=== PATIENT | female | born 1990 | race Caucasian/White ===

== ENCOUNTER 2016-10-04 05:09 | Inpatient (IN) | payer MEDICAID ==
[2016-10-03 10:29] LABS: ABSOLUTE EOSINOPHILS # (AUTO) 0.2 10^3/uL (0.0-0.6); ABSOLUTE LYMPHOCYTES (AUTO) 2.3 10^3/uL (0.5-4.7); ABSOLUTE MONOCYTES (AUTO) 0.8 10^3/uL (0.1-1.4); ABSOLUTE NEUT (AUTO) 6.9 10^3/uL (1.7-8.2); BASOPHILS % (AUTO) 0.3 % (0-2); EOSINOPHILS % (AUTO) 2.3 % (0-6); HEMOGLOBIN 12.4 g/dL (12.0-15.5); HGB HCT DIFFERENCE 0.2; LYMPHOCYTES % (AUTO) 22.5 % (13-45); MEAN CORPUSCULAR HEMOGLOBIN 26.4 pg (27.0-33.4); MEAN CORPUSCULAR HGB CONC 33.5 g/dL (32.0-36.0); MEAN CORPUSCULAR VOLUME 79 fl (80-97); MONOCYTES % (AUTO) 7.5 % (3-13); RED BLOOD COUNT 4.71 10^6/uL (3.72-5.28); RED CELL DISTRIBUTION WIDTH 16.1 % (11.5-14.0); SEGMENTED NEUTROPHILS % (AUTO) 67.4 % (42-78); WHITE BLOOD COUNT 10.3 10^3/uL (4.0-10.5)
[2016-10-03 10:34] LABS: AMORPHOUS SEDIMENT,URINE TRACE /HPF; APPEARANCE,URINE CLOUDY; BILIRUBIN,URINE NEGATIVE (NEGATIVE); GLUCOSE, URINE 50 mg/dL (NEGATIVE); KETONES,URINE NEGATIVE (NEGATIVE); LEUKOCYTE ESTERASE,URINE TRACE (NEGATIVE); NITRITE,URINE NEGATIVE (NEGATIVE); PROTEIN,URINE NEGATIVE (NEGATIVE); URINE SPECIFIC GRAVITY 1.015; UROBILINOGEN,URINE NEGATIVE mg/dL (<2.0)
[2016-10-03 10:47] LABS: URINE BARBITURATES SCREEN NEGATIVE; URINE METHADONE SCREEN NEGATIVE; URINE OPIATES LOW NEGATIVE; URINE PHENCYCLIDINE SCREEN NEGATIVE
[~2016-10-04 05:09] MED LIST: CEFAZOLIN 1 GM/D5W RTU 1 GM/50 ML RTUPB IV PRN; LIDOCAINE 0.5% INJ-PF (5 MG/ML) 50 ML SDV SUBCUT PRN
[2016-10-04] MEDS: LACTATED RINGERS 1000 ML IV PRN ×2 (05:45→06:19)
[2016-10-04] MEDS ORDERED: OXYTOCIN 10 UNIT/ML VIAL ONE (07:20)
[2016-10-04] MEDS ORDERED: METHYLERGONOVINE MALEATE INJ/PF 0.2 MG/1 ML AMPULE ONE (07:21)
[2016-10-04] MEDS ORDERED: OXYTOCIN/NORMAL SALINE 20 UNIT/1,000 ML RTUINJ ONE (07:21)
[2016-10-04] MEDS ORDERED: EPHEDRINE SULFATE INJ 50 MG/1 ML AMPULE ONE (07:21)
[2016-10-04] MEDS ORDERED: MIDAZOLAM 2 MG/2 ML INJ ONE (07:21)
[2016-10-04] MEDS ORDERED: ACETAMINOPHEN 100 ML IV ONE (07:21)
[2016-10-04] MEDS ORDERED: DIPHENHYDRAMINE HCL 50 MG/ML VIAL IV PRN (07:36)
[2016-10-04] MEDS ORDERED: OXYCODONE-ACETAMINOPHEN 5-325 MG TABLET PO PRN ×3 (07:36→09:02)
[2016-10-04] MEDS ORDERED: PROMETHAZINE HCL INJ 25 MG/1 ML VIAL IV PRN ×3 (07:36→09:02)
[2016-10-04] MEDS ORDERED: MEPERIDINE HCL/PF INJ 25 MG/1 ML DISP.SYRIN IV PRN (07:36)
[2016-10-04] MEDS ORDERED: MORPHINE SULFATE 10 MG/ML INJ IV PRN (07:36)
[2016-10-04] MEDS ORDERED: FENTANYL CITRATE INJ/PF 100 MCG/2 ML AMPUL IV PRN ×2 (07:36)
[2016-10-04] MEDS ORDERED: CEFAZOLIN INJ 1 GM VIAL ONE (08:14)
[2016-10-04] MEDS ORDERED: MEASLES,MUMPS&RUBELLA VACC/PF 0.5 ML VIAL SUBCUT PRN (09:02)
[2016-10-04] MEDS ORDERED: OXYTOCIN/NORMAL SALINE 1,000 ML IV PRN (09:02)
[2016-10-04] MEDS ORDERED: DIPH/PERTUSS(ACELL)/TETANUS VAC/PF 0.5 ML SYR (>=10YO) IM PRN (09:02)
[2016-10-04] MEDS ORDERED: ACETAMINOPHEN 325 MG TABLET PO PRN (09:02)
[2016-10-04] MEDS ORDERED: ACETAMINOPHEN 100 ML IV PRN (09:02)
[2016-10-04] MEDS ORDERED: SIMETHICONE 80 MG TAB.CHEW PO PRN (09:02)
[2016-10-04] MEDS ORDERED: RINGERS SOLUTION,LACTATED 1,000 ML IV PRN (09:02)
--- NOTE | 2016-10-04 09:07 | PDOC DELIVERY SUMMARY ---
Delivery Summary - Maternal Hx : III Hx # Term Pregnancies: 2 [place]ON: 10/11/16 Ruptured Membranes: AROM Time of Rupture: 08:21 Fluids: Clear - Delivery Presentation: Face/Brow Support Person Present: Yes Location: OR : Scheduled Delivery of Placenta Date: 10/04/16 Delivery of Placenta Time: 08:24 - Medications Type of Anesthesia:: Spinal - Infant Assess and Care Baby 1 Male Delivery of Date: 10/04/16 Delivery of Time: 08:22 at 1 minute: 8 at 5 minutes: 9 Preprinted Number On Band: [id number] Skin to Skin: Yes Skin to Skin (Mins): 4 To Nursery At: 08:30 Mode of Transport: Bassinet Infant Weight: 4473 kg Length: 20.5 in - Delivery Personnel Nursery RN: Rebecca DIGGS RN: SIMONE PETERSON RN: LUKE PADGETT MD: ROBERT VELEZ Apartment Maintenance: DR. DICKINSON
--- NOTE | 2016-10-04 09:10 | Operative Report ---
Operative Report DATE OF SURGERY: 10/04/16 PREOPERATIVE DIAGNOSIS: Repeat to prevent uterine rupture and desires tubal ligation POSTOPERATIVE DIAGNOSIS: Same OPERATION: Repeat via low transverse uterine incision and bilateral tubal ligation with Filshie clips SURGEON: ROBERT VELEZ ANESTHESIA: Spinal TISSUE REMOVED OR ALTERED: Placenta COMPLICATIONS: None ESTIMATED BLOOD LOSS: 250 cc INTRAOPERATIVE FINDINGS: Viable male. Normal uterus tubes and ovaries PROCEDURE: Patient was taken to the OR and placed in supine position after her spinal anesthesia. She is prepared and draped in sterile fashion. Guevara was placed for drainage of the bladder. Low transverse incision was made and carried down the level of the fascia. The fascial incision was made with knife and extended bilaterally with curved Patel scissors. The fascia was off the rectus muscles using sharp and blunt dissection. The rectus muscles are in the midline. The peritoneum was entered without incident. Bladder blade was placed in uterine segment was identified. A low transverse incision was made creating a bladder flap. Bladder blade was placed low transverse uterine incision was made with the c safe knife and extended with fingertips. The baby was delivered with some fundal pressure. Mouth and nose were suctioned free. The cord was doubly clamped and cut. Baby was passed off to the ceramics engineer in attendance. The placenta was manually extracted with trailing membranes. The uterus was externalized wrapped in a moist lap sponge. Uterine contents wiped free. Uterus was closed with a running locking layer of 0 chromic suture using the second layer to imbricate the first completing a double layer closure of the uterus. The serosa was closed with a running 2-0 chromic stitch. The pelvis was irrigated and suctioned free of fluid the uterus was replaced in the abdomen. The abdominal wall peritoneum was closed with running 2-0 chromic stitch. Fascia was closed with a running 0 Vicryl in 2 segments. Ciro's layer was brought together with 0 plain gut stitch and the skin was closed with running subcuticular 4-0 undyed Vicryl stitch. The wound was dressed mother and baby did well.
[2016-10-04] MEDS ORDERED: FENTANYL CITRATE INJ/PF 100 MCG/2 ML AMPUL ONE (09:29)
[2016-10-04] MEDS: FENTANYL CITRATE INJ/PF 100 MCG/2 ML AMPUL IV PRN ×2 (09:33→10:00)
[2016-10-04] MEDS ORDERED: HYDROMORPHONE HCL INJ/PF 2 MG/ML AMPULE ONE (10:20)
[2016-10-04] MEDS: HYDROMORPHONE HCL INJ/PF 2 MG/ML AMPULE IV PRN ×2 (10:27→13:29)
[2016-10-04] MEDS ORDERED: ONDANSETRON 4 MG TAB.RAPDIS ONE (11:19)
[2016-10-04] MEDS ORDERED: ONDANSETRON 4 MG TAB.RAPDIS PO PRN (11:22)
[2016-10-04] MEDS ORDERED: IBUPROFEN 800 MG TABLET PO SCH (12:00)
[2016-10-04] MEDS ORDERED: OXYCODONE HCL IR 5 MG TABLET ONE (12:32)
[2016-10-04] MEDS ORDERED: PHENYLEPHRINE HCL INJ/PF 10 MG/1 ML SDV ONE (13:19)
[2016-10-04] MEDS ORDERED: ONDANSETRON HCL INJ/PF 4 MG/2 ML SDV ONE (13:19)
[2016-10-04] MEDS: DOCUSATE SODIUM 100 MG CAPSULE PO SCH ×2 (14:34→17:31)
[2016-10-04] MEDS: PRENATAL VITAMIN W-O CA NO5/FE FUMARATE/FA CAPSULE PO SCH (14:34)
[2016-10-04] MEDS: KETOROLAC TROMETHAMINE INJ/PF 30 MG/1 ML SDV IV SCH ×2 (14:58→21:30)
[2016-10-04] MEDS: LANSOPRAZOLE 30 MG TAB.RAP.DR PO SCH (17:31)
[2016-10-04] MEDS: OXYCODONE-ACETAMINOPHEN 5-325 MG TABLET PO PRN (20:53)
[2016-10-05] MEDS: OXYCODONE-ACETAMINOPHEN 5-325 MG TABLET PO PRN ×3 (04:24→21:23)
[2016-10-05] MEDS: KETOROLAC TROMETHAMINE INJ/PF 30 MG/1 ML SDV IV SCH (06:00)
[2016-10-05] MEDS: LANSOPRAZOLE 30 MG TAB.RAP.DR PO SCH ×2 (06:00→17:51)
[2016-10-05 06:43] LABS: HEMATOCRIT 32.1 % (36.0-47.0); HEMOGLOBIN 10.8 g/dL (12.0-15.5); HGB HCT DIFFERENCE 0.3; MEAN CORPUSCULAR HEMOGLOBIN 26.3 pg (27.0-33.4); MEAN CORPUSCULAR HGB CONC 33.7 g/dL (32.0-36.0); MEAN CORPUSCULAR VOLUME 78 fl (80-97); RED BLOOD COUNT 4.12 10^6/uL (3.72-5.28); WHITE BLOOD COUNT 9.8 10^3/uL (4.0-10.5)
--- NOTE | 2016-10-05 08:44 | PDOC PROGRESS REPORT ---
Subjective-OB Subjective: Post Delivery Day: 1 26 year old. Denies any needs at this time, states lochia is stable, pain is moderately well controlled, voiding without difficulty, passing gas, tolerating diet. Physical Exam (OB) Vital Signs: Temp Pulse Resp BP Pulse Ox 98.4 F 88 16 128/67 H 99 10/05/16 04:05 10/05/16 04:05 10/05/16 04:05 10/05/16 04:05 10/05/16 04:05 Intake & Output 10/04/16 10/05/16 10/06/16 06:59 06:59 06:59 Intake Total 1211 Output Total 1925 Balance -714 Weight 118.84 kg - Dressing Removed: No Incision: Dressing - Lochia Lochia Amount: Small 10-25 ml Lochia Color: Rubra/Red - Abdomen Description: Soft, Round Hernia Present: No Fundal Description: Firm, Midline Fundal Height: u/u - u/2 Objective-Diagnostic Laboratory: 10/05/16 06:00 10/05/16 06:00 WBC 9.8 RBC 4.12 Hgb 10.8 L Hct 32.1 L MCV 78 L MCH 26.3 L MCHC 33.7 RDW 16.0 H Plt Count 120 L Assessment and Plan(PN) - Assessment and Plan (1) S/P repeat low transverse Is this a current diagnosis for this admission?: YesPlan: routine pp care (2) Acute blood loss anemia Is this a current diagnosis for this admission?: YesPlan: ferrous sulfate increase dietary iron - Time Spent with Patient Time with patient: Less than 15 minutes Critical Time spent with patient: Less than 15 minutes Medications reviewed and adjusted accordingly: Yes - Disposition Anticipated Discharge: Home Within: within 24 hours
[2016-10-05] MEDS: DOCUSATE SODIUM 100 MG CAPSULE PO SCH ×2 (10:36→17:51)
[2016-10-05] MEDS: PRENATAL VITAMIN W-O CA NO5/FE FUMARATE/FA CAPSULE PO SCH (10:37)
[2016-10-05] MEDS: IBUPROFEN 800 MG TABLET PO SCH ×2 (12:36→17:50)
[2016-10-06] MEDS: IBUPROFEN 800 MG TABLET PO SCH ×2 (00:02→06:09)
[2016-10-06] MEDS: LANSOPRAZOLE 30 MG TAB.RAP.DR PO SCH (06:09)
--- NOTE | 2016-10-06 08:42 | PDOC DISCHARGE SUMMARY ---
Final Diagnosis Discharge Date: 10/06/16 - Final Diagnosis (1) S/P repeat low transverse Is this a current diagnosis for this admission?: Yes (2) Acute blood loss anemia Is this a current diagnosis for this admission?: Yes Discharge Data - Discharge Medication Home Medications: Pnv95/Iron Fum/Folic Acid [ Caplet] 1 each PO DAILY 03/20/15 Docusate Sodium [Colace 100 mg Capsule] 100 mg PO BID #60 capsule 10/06/16 Ibuprofen [Motrin 800 mg Tablet] 800 mg PO Q6 #60 tablet 10/06/16 Lansoprazole [Prevacid 30 mg Odt Tablet] 30 mg PO BID@0600,1700 #60 tab.rap. 10/06/16 Oxycodone HCl/Acetaminophen [Percocet 5-325 mg Tablet] 1 tab PO Q4HP PRN #30 tablet 10/06/16 Gestational Age: 39 Reason(s) for Admission: Ceasarean Section-Repeat, Tubal Ligation Procedures: NST Intrapartum Procedure(s): : Low Cervical, Transverse, Tubal Ligation - Data Baby 1 Male at 1 minute: 8 at 5 minutes: 9 Weight: 4473 kg Home with Mother: Yes Complications: No - Diagnosis Test Laboratory: Temp Pulse Resp BP Pulse Ox 98.1 F 84 16 111/50 L 100 10/06/16 08:04 10/06/16 08:04 10/06/16 08:04 10/06/16 08:04 10/06/16 08:04 10/03/16 10/03/16 10/05/16 09:55 10:00 06:00 RBC 4.71 4.12 Hgb 12.4 10.8 L Hct 37.0 32.1 L Urine Opiates Screen NEGATIVE - Discharge information/Instructions Discharge Activity: Activity As Tolerated, No Driving, No Lifting Over 10 Pounds , Pelvic Rest, No tub bath Discharge Diet: Regular Disposition: HOME, SELF-CARE Follow up with: [facility] in: 1, Weeks
[2016-10-06 08:57] VITALS: BP 122/70
[2016-10-06] MEDS: PRENATAL VITAMIN W-O CA NO5/FE FUMARATE/FA CAPSULE PO SCH (09:41)
[2016-10-06] MEDS: DOCUSATE SODIUM 100 MG CAPSULE PO SCH (09:41)
== END 2016-10-06 10:25 | disposition home or self-care (01) | DRG 765 ==
LOC: 2S 05:09
PROVIDERS: ADMIT Obstetrics & Gynecology; ATTEND Obstetrics & Gynecology
PROC: 0UL70CZ Occlusion of Bilateral Fallopian Tubes with Extraluminal Device, Open Approach (ICD-10-PCS; 2016-10-04)
PROC: 10D00Z1 Extraction of Products of Conception, Low, Open Approach (ICD-10-PCS; principal; 2016-10-04 07:45)
DX: O34.211 Maternal care for low transverse scar from previous cesarean delivery (principal); Z68.42 Body mass index [BMI] 45.0-49.9, adult; O24.425 Gestational diabetes mellitus in childbirth, controlled by oral hypoglycemic drugs; O99.214 Obesity complicating childbirth; E66.9 Obesity, unspecified; Z3A.39 39 weeks gestation of pregnancy; Z37.0 Single live birth; Z30.2 Encounter for sterilization
CPT/HCPCS: 1961; 36415; 59025; 80307; 81001; 82962; 85025; 85027; 86850; 86900; 86901; 94799; J0131; J0690; J1170; J1885; J2210; J2250; J2370; J2405; J2590; J3010; J3490; J7120; S0119

== ENCOUNTER 2017-09-17 14:03 | Emergency (ER) | payer MEDICAID ==
--- NOTE | 2017-09-17 14:37 | ER Document Report ---
ED Medical Screen (RME) - General Chief Complaint: Skin Problem Stated Complaint: LUMP NEAR INCISION Time Seen by Provider: 09/17/17 14:31 Information source: Patient Notes: 27-year-old female with a history of brain tumor requiring removal in December 2016 and a TOWBOAT OPERATOR shunt placement presents with complaint of a lump in her abdomen appeared 3 days prior to arrival near the TOWBOAT OPERATOR incision site. Patient denies prior similar symptoms. She denies any fever chills nausea vomiting. He did contact her surgeons at [place] who recommended CAT scan and ER evaluation. I have greeted and performed a rapid medicall assessment of the patient. A comprehensive evaluation and assessment will be performed by another ED provider. Medical decision making, lab review/xrays if performed will be reviewed by the ED provider assuming the patient. PHYSICAL EXAMINATION: GENERAL: Well-appearing, well-nourished and in no acute distress. HEAD: Atraumatic, normocephalic. EYES: Pupils equal round extraocular movements intact, conjunctiva are normal. ENT: Nares patent NECK: Normal range of motion Abdomen: Large firm area of her mid abdomen that is nontender, non-erythematous or fluctuant. LUNGS: No respiratory distress Musculoskeletal: Normal range of motion NEUROLOGICAL: Normal speech, normal gait. PSYCH: Normal mood, normal affect. SKIN: Warm, Dry, normal turgor, no rashes or lesions noted. TRAVEL OUTSIDE OF THE [place] IN LAST 30 DAYS: No - HPI Onset: Other - 3 Days prior to arrival Onset/Duration: Sudden Quality of pain: No pain Severity: None Pain Level: Denies Associated Symptoms: None Exacerbated by: Denies Relieved by: Denies Similar symptoms previously: No Recently seen / treated by doctor: No - Related Data Smoking: Non-smoker Frequency of alcohol use: None Drug Abuse: None Allergies/Adverse Reactions: adhesive Allergy (Mild, Verified 09/17/17 14:05) rash Past Medical History - Social History Chew tobacco use (# tins/day): No Frequency of alcohol use: None Drug Abuse: None Pulmonary Medical History: Denies: Hx Tuberculosis Neurological Medical History: Denies: Hx Cerebrovascular Accident, Hx Seizures Endocrine Medical History: Reports: Hx Diabetes Mellitus Type 2. Denies: Hx Hyperthyroidism, Hx Hypothyroidism Renal/ Medical History: Denies: Hx Peritoneal Dialysis GI Medical History: Reports: Hx Gastroesophageal Reflux Disease - hx. Denies: Hx Hiatal Hernia, Hx Ulcer Psychiatric Medical History: Reports: Hx Bipolar Disorder, Hx Depression Past Surgical History: Reports: Hx Section, Hx Orthopedic Surgery - left knee - Immunizations Hx Diphtheria, Pertussis, Tetanus Vaccination: Yes Physical Exam - Vital signs Vitals: Temp Pulse Resp BP Pulse Ox 98.4 F 91 18 131/63 H 98 09/17/17 14:11 09/17/17 14:11 09/17/17 14:11 09/17/17 14:11 09/17/17 14:11 Course - Vital Signs Vital signs: Temp Pulse Resp BP Pulse Ox 98.4 F 91 18 131/63 H 98 09/17/17 14:11 09/17/17 14:11 09/17/17 14:11 09/17/17 14:11 09/17/17 14:11
[2017-09-17 14:58] LABS: ABSOLUTE EOSINOPHILS # (AUTO) 0.6 10^3/uL (0.0-0.6); ABSOLUTE MONOCYTES (AUTO) 0.5 10^3/uL (0.1-1.4); ABSOLUTE NEUT (AUTO) 6.6 10^3/uL (1.7-8.2); BASOPHILS % (AUTO) 0.4 % (0-2); EOSINOPHILS % (AUTO) 5.3 % (0-6); HEMATOCRIT 39.9 % (36.0-47.0); HEMOGLOBIN 13.3 g/dL (12.0-15.5); LYMPHOCYTES % (AUTO) 27.9 % (13-45); MEAN CORPUSCULAR HGB CONC 33.3 g/dL (32.0-36.0); MEAN CORPUSCULAR VOLUME 75 fl (80-97); MONOCYTES % (AUTO) 4.6 % (3-13); PLATELET COUNT 244 10^3/uL (150-450); RED BLOOD COUNT 5.31 10^6/uL (3.72-5.28); RED CELL DISTRIBUTION WIDTH 16.4 % (11.5-14.0); SEGMENTED NEUTROPHILS % (AUTO) 61.8 % (42-78); TOTAL CELLS COUNTED % (AUTO) 100 %; WHITE BLOOD COUNT 10.7 10^3/uL (4.0-10.5)
[2017-09-17 15:06] LABS: APPEARANCE,URINE CLOUDY; BILIRUBIN,URINE NEGATIVE (NEGATIVE); COLOR,URINE YELLOW; GLUCOSE, URINE NEGATIVE (NEGATIVE); KETONES,URINE NEGATIVE (NEGATIVE); LEUKOCYTE ESTERASE,URINE LARGE (NEGATIVE); NITRITE,URINE NEGATIVE (NEGATIVE); PROTEIN,URINE NEGATIVE (NEGATIVE); URINE SPECIFIC GRAVITY 1.029; UROBILINOGEN,URINE NEGATIVE mg/dL (<2.0)
[2017-09-17 15:22] LABS: ALANINE AMINOTRANSFERASE 26 U/L (9-52); ALBUMIN 4.5 g/dL (3.5-5.0); ALKALINE PHOSPHATASE 102 U/L (38-126); ANION GAP 12 (5-19); ASPARTATE AMINO TRANSFERASE 18 U/L (14-36); BILIRUBIN,DIRECT 0.3 mg/dL (0.0-0.4); BILIRUBIN,TOTAL 0.3 mg/dL (0.2-1.3); BLOOD UREA NITROGEN 11 mg/dL (7-20); CALCIUM 9.6 mg/dL (8.4-10.2); CARBON DIOXIDE 26 mmol/L (22-30); CHLORIDE 105 mmol/L (98-107); GLUCOSE 103 mg/dL (75-110); POTASSIUM 3.8 mmol/L (3.6-5.0); SODIUM 142.8 mmol/L (137-145); TOTAL PROTEIN 7.3 g/dL (6.3-8.2)
--- NOTE | 2017-09-17 16:20 | RADIOLOGY REPORT (SQ) ---
EXAM DESCRIPTION: CT ABD/PELVIS WITH IV ONLY COMPLETED DATE/TIME: 09/17/2017 4:09 pm REASON FOR STUDY: possible fluid collection around shunt COMPARISON: 12/25/2011. TECHNIQUE: CT scan of the abdomen and pelvis performed using helical scanning technique with dynamic intravenous contrast injection. No oral contrast. Images reviewed with lung, soft tissue, and bone windows. Reconstructed coronal and sagittal MPR images reviewed. Delayed images for evaluation of the urinary system also acquired. All images stored on PACS. All CT scanners at this facility use dose modulation, iterative reconstruction, and/or weight based d osing when appropriate to reduce radiation dose to as low as reasonably achievable (ALARA). [facility]: Dose Right [facility]: CareDose [facility]: Dose Right [facility]: Teradose 4D [facility]: Ulule CONTRAST TYPE AND DOSE: 100 mL Isovue 370- low osmolar. RENAL FUNCTION: BUN 11 creatinine 0.62. RADIATION DOSE: CT Rad equipment meets quality standard of care and radiation dose reduction techniq ues were employed. CTDIvol: 20.4 - 20.9 mGy. DLP: 2363 mGy-cm.. LIMITATIONS: None. FINDINGS: LOWER CHEST: No significant findings. No nodules or infiltrates. LIVER: Normal size. No masses. No dilated ducts. SPLEEN: Normal size. No focal lesions. PANCREAS: No masses. No significant calcifications. No adjacent inflammation or peripancreatic fluid collections. Pancreatic duct not dilated. GALLBLADDER: No identified stones by CT criteria. No inflammatory changes to suggest cholecystitis. ADRENAL GLANDS: No significant masses or asymmetry. RIGHT KIDNEY AND URETER: No solid masses. No significant calcifications. No hydronephrosis or hyd roureter. LEFT KIDNEY AND URETER: No solid masses. No significant calcifications. No hydronephrosis or hydr oureter. AORTA AND VESSELS: No aneurysm. No dissection. Renal arteries, SMA, celiac without stenosis. RETROPERITONEUM: No retroperitoneal adenopathy, hemorrhage or masses. BOWEL AND PERITONEAL CAVITY: No masses or inflammatory changes. No free fluid or peritoneal masses. APPENDIX: Normal. PELVIS: No mass. No free fluid. Normal bladder. ABDOMINAL WALL: Shunt tubing in the anterior subcutaneous tissues of the abdominal wall. The tubing has become displaced and the distal end is in the subcutaneous fatty tissues. Focal fluid collection around the distal tubing, measuring 8 cm. BONES: No significant or acute findings. OTHER: No other significant finding. IMPRESSION: 1. SHUNT TUBING IN THE ANTERIOR SUBCUTANEOUS FATTY TISSUES OF THE ABDOMINAL WALL. THE DISTAL END OF THE TUBING HAS BECOME DISPLACED AND IS IN THE SUBCUTANEOUS FATTY TISSUES. FOCAL FLUID COLLECTION LEEROY UND THE DISTAL TUBING MEASURING 8 CM. 2. NO OTHER SIGNIFICANT OR ACUTE FINDING IN THE ABDOMEN OR PELVIS ON CT SCAN WITH IV CONTRAST. TECHNICAL DOCUMENTATION: JOB ID: [id number] Quality ID # [id number]: Final reports with documentation of one or more dose reduction techniques (e.g., Au tomated exposure control, adjustment of the mA and/or kV according to patient size, use of iterative reconstruction technique) 2010 [employer]- All Rights Reserved Reading location - IP/workstation name: [email or web address]
--- NOTE | 2017-09-17 16:47 | ER Document Report ---
ED General - General Chief Complaint: Skin Problem Stated Complaint: LUMP NEAR INCISION Time Seen by Provider: 09/17/17 14:31 Mode of Arrival: Ambulatory Information source: Patient Notes: Patient is a 27-year-old female with a history of a brain tumor requiring resection and DEALER CARD ROOM shunt placement in December 2016 who presents to the ER today for a lump that is nontender that she noticed above her incision site for the DEALER CARD ROOM shunt placement in her abdomen proximally 3 days ago. Patient denies any fever, chills, redness, pain to the lump at all. She denies any other symptoms. Dr. Marcia Roberson, neurosurgeon at [facility] is the neurosurgeon who placed the shunt. TRAVEL OUTSIDE OF THE [place] IN LAST 30 DAYS: No - Related Data Allergies/Adverse Reactions: adhesive Allergy (Mild, Verified 09/17/17 14:05) rash Past Medical History - General Information source: Patient - Social History Smoking Status: Never Smoker Chew tobacco use (# tins/day): No Frequency of alcohol use: None Drug Abuse: None Family History: Reviewed & Not Pertinent Patient has suicidal ideation: No Patient has homicidal ideation: No Pulmonary Medical History: Denies: Hx Tuberculosis Neurological Medical History: Denies: Hx Cerebrovascular Accident, Hx Seizures Endocrine Medical History: Reports: Hx Diabetes Mellitus Type 2. Denies: Hx Hyperthyroidism, Hx Hypothyroidism Renal/ Medical History: Denies: Hx Peritoneal Dialysis GI Medical History: Reports: Hx Gastroesophageal Reflux Disease - hx. Denies: Hx Hiatal Hernia, Hx Ulcer Psychiatric Medical History: Reports: Hx Bipolar Disorder, Hx Depression Past Surgical History: Reports: Hx Section, Hx Orthopedic Surgery - left knee, brain - Immunizations Hx Diphtheria, Pertussis, Tetanus Vaccination: Yes Review of Systems - Review of Systems Constitutional: No symptoms reported EENT: No symptoms reported Cardiovascular: No symptoms reported Respiratory: No symptoms reported Gastrointestinal: See HPI Genitourinary: No symptoms reported Female Genitourinary: No symptoms reported Musculoskeletal: No symptoms reported Skin: No symptoms reported Hematologic/Lymphatic: No symptoms reported Neurological/Psychological: No symptoms reported Physical Exam - Vital signs Vitals: Temp Pulse Resp BP Pulse Ox 98.4 F 91 18 131/63 H 98 09/17/17 14:11 09/17/17 14:11 09/17/17 14:11 09/17/17 14:11 09/17/17 14:11 - Notes Notes: PHYSICAL EXAMINATION: GENERAL: Well-appearing, smiling, texting on phone and in no acute distress. HEAD: Atraumatic, normocephalic. EYES: Pupils equal round and reactive to light, extraocular movements intact, sclera anicteric, conjunctiva are normal. NECK: Normal range of motion, supple without lymphadenopathy LUNGS: CTAB and equal. No wheezes rales or rhonchi. HEART: Regular rate and rhythm without murmurs ABDOMEN: Approximately 5 cm area of induration above horizontal incision superior to the umbilicus, nontender to palpation, no erythema, no drainage, incision looks well-healed, soft, no tenderness. No guarding, no rebound BACK: no vertebral tenderness, normal ROM GI/: no CVA tenderness EXTREMITIES: Normal range of motion, no pitting edema. No cyanosis. NEUROLOGICAL: Cranial nerves grossly intact. Normal sensory/motor exams. PSYCH: Normal mood, normal affect. SKIN: Warm, Dry, normal turgor, CT abdomen above Course - Re-evaluation Re-evalutation: 09/17/17 16:44 Patient is a mildly elevated white blood cell count 10.7 but she also has 25 white blood cells in her urine. CAT scan of the abdomen with IV contrast reveals an 8 cm fluid collection at the end of some tubing from the DEALER CARD ROOM shunt that has become displaced. Dr. Dimas, neurosurgeon on-call for Dr. Roberson at [facility] was consulted and states that there is nothing emergent at this time as patient is pleasant, happy, not in any pain with all normal vital signs and essentially normal lab work, but that he will call her tomorrow to make an appointment very quickly within the week to get her scheduled for a DEALER CARD ROOM shunt revision. Patient is very happy with this and is okay going home to wait on her scheduled appointment. I will send patient home with a prescription for Keflex, she would like to wait until the culture returns in 2 days which is pending at this time, but will already have the prescription for Keflex in case she needs it once the culture is back. - Vital Signs Vital signs: Temp Pulse Resp BP Pulse Ox 98.4 F 91 18 131/63 H 98 09/17/17 14:11 09/17/17 14:11 09/17/17 14:11 09/17/17 14:11 09/17/17 14:11 - Laboratory Result Diagrams: 09/17/17 14:45 09/17/17 14:45 Laboratory results interpreted by me: 09/17/17 09/17/17 14:45 14:45 WBC 10.7 H RBC 5.31 H MCV 75 L MCH 25.0 L RDW 16.4 H Ur Leukocyte Esterase LARGE H Discharge - Discharge Clinical Impression: S/P DEALER CARD ROOM shunt, Abdominal wall fluid collections UTI (urinary tract infection) Qualifiers: Urinary tract infection type: site unspecified Hematuria presence: without hematuria Qualified Code(s): N39.0 - Urinary tract infection, site not specified Condition: Stable Disposition: HOME, SELF-CARE Additional Instructions: Return immediately for any new or worsening symptoms, such as headache, fever, increased pain to the area. Dr. Dimas states that they will call you tomorrow to schedule an appointment for a DEALER CARD ROOM shunt revision. Prescriptions: Cephalexin Monohydrate [Keflex 500 mg Capsule] 500 mg PO BID 5 Days capsule
[2017-09-17 17:08] VITALS: BP 110/69
== END 2017-09-17 17:16 | disposition home or self-care (01) ==
LOC: ER 14:03
DX: N39.0 Urinary tract infection, site not specified (principal); R22.2 Localized swelling, mass and lump, trunk; R22.0 Localized swelling, mass and lump, head; D72.829 Elevated white blood cell count, unspecified; E11.9 Type 2 diabetes mellitus without complications; Z98.2 Presence of cerebrospinal fluid drainage device; Z96.89 Presence of other specified functional implants
CPT/HCPCS: 36415; 74177; 80053; 81001; 81025; 85025; 87086; 99284

== ENCOUNTER → 2017-10-17 | Outpatient (CLI) | payer MEDICAID ==
--- NOTE | 2017-10-17 11:42 | WOMENS IMAGING REPORT ---
EXAM DESCRIPTION: U/S ABDOMEN TOTAL COMPLETED DATE/TIME: 10/17/2017 10:17 am REASON FOR STUDY: PERIUMBILIC SWELLING, MASS OR LUMP; R19.05 R19.05 PERIUMBILIC SWELLING, MASS OR L UMP COMPARISON: CT dated 09/17/2017. TECHNIQUE: Dynamic and static grayscale images acquired of the abdomen and recorded on PACS. Additio nal selected color Doppler and spectral images recorded. LIMITATIONS: Study limited due to acoustical interference from fat or from air in the bowel. FINDINGS: PANCREAS: Obscured. LIVER: Echotexture is coarse with increased echogenicity consistent with fatty infiltration. LIVER VASCULATURE: Normal directional flow of the main portal vein and hepatic veins. GALLBLADDER: No stones. Normal wall thickness. No pericholecystic fluid. ULTRASOUND-DETECTED BHATT'S SIGN: Negative. INTRAHEPATIC DUCTS AND COMMON DUCT: CBD and intrahepatic ducts normal caliber. No filling defects. INFERIOR VENA CAVA: Obscured. AORTA: Obscured. RIGHT KIDNEY: Normal size. Normal echogenicity. No solid or suspicious masses. No hydronephrosis. No calcifications. LEFT KIDNEY: Normal size. Normal echogenicity. No solid or suspicious masses. No hydronephrosis. No calcifications. SPLEEN:Normal size. No solid masses. PERITONEAL AND PLEURAL SPACES: No ascites or effusions. OTHER: There is fluid in the soft tissues of the anterior abdominal wall adjacent to the shunt tubing . Largest fluid collection measures at least 8 cm in length. IMPRESSION: 1. FATTY INFILTRATION OF THE LIVER. NO OTHER SIGNIFICANT FINDING IN THE VISUALIZED ABDOMEN. 2. LARGE FLUID COLLECTION IN THE SUBCUTANEOUS TISSUES OF THE ANTERIOR ABDOMINAL WALL ADJACENT TO THE SHUNT TUBING. SIMILAR FINDING ON RECENT CT. THE END OF THE SHUNT TUBING IS IN THE SUBCUTANEOUS TISS UES OF THE ANTERIOR ABDOMINAL WALL AND NOT IN THE PERITONEAL CAVITY. RECOMMEND CONSULTATION WITH THE PATIENT'S NEUROSURGEON TO DETERMINE IF THE SHUNT TUBING NEEDS TO BE REPLACED OR REMOVED. TECHNICAL DOCUMENTATION: JOB ID: [id number] [employer]- All Rights Reserved Reading location - IP/workstation name: [email or web address]
== END ==
LOC: WI 09:02
PROVIDERS: ATTEND Physician Assistant
DX: R19.05 Periumbilic swelling, mass or lump (principal)
CPT/HCPCS: 76700